=== PATIENT | female | born 1970 | race Caucasian/White ===

== ENCOUNTER 2016-07-05 12:22 | Emergency (ER) | payer OTHER ==
[~2016-07-05] VITALS: Ht 165.1 cm; Wt 105.2 kg
[~2016-07-05 12:22] MED LIST: FLEXERIL10 MG PO; NAPROSYN500 MG PO; VICODIN 5-3001 EACH PO
[2016-07-05] MEDS ORDERED: PREDNISONE50 MG PO (14:22)
[2016-07-05] MEDS ORDERED: CITALOPRAM HBR40 MG PO (14:42)
[2016-07-05 16:15] VITALS: BP 116/74
== END 2016-07-05 16:31 | disposition home or self-care (01) ==
LOC: EME 12:22
DX: T78.1XXA Other adverse food reactions, not elsewhere classified, initial encounter (principal); R21 Rash and other nonspecific skin eruption; R22.0 Localized swelling, mass and lump, head; L50.9 Urticaria, unspecified; Z88.1 Allergy status to other antibiotic agents
CPT/HCPCS: 99281; 99285; J1200; J2930; S0028

== ENCOUNTER 2016-12-11 13:24 | Inpatient (IN) | payer OTHER ==
[~2016-12-11] VITALS: Ht 165.1 cm; Wt 109.7 kg
[~2016-12-11 13:24] MED LIST changes: +CITALOPRAM HBR40 MG PO; +PREDNISONE50 MG PO
[2016-12-11 13:44] LABS: EOSINOPHIL (%) 1.1 % (0-5); EOSINOPHIL COUNT 0.1 K/uL (0-0.3); HEMATOCRIT 43.3 % (36.0-46.0); IMMATURE GRANULOCYTE (%) 0.7 % (0.0-0.7); IMMATURE GRANULOCYTE COUNT 0.1 K/uL; INSTRUMENT ABS NEUTROPHIL CT 4.3 K/uL; LYMPHOCYTE COUNT 2.2 K/uL (1.0-2.8); MCH 31.6 PG (29.0-34.0); MCHC 34.9 G/DL (30.0-36.0); MCV 90.6 FL (83-99); MONOCYTE (%) 4.3 % (3-12); MONOCYTE COUNT 0.3 K/uL (0-0.8); NEUTROPHIL (%) 61.7 % (45-76); NEUTROPHIL COUNT 4.3 K/uL (1.8-6.4); RBC DIS.WIDTH-CV 12.3 % (11.8-14.6); RBC DIS.WIDTH-SD 40.8 % (39-53); RED BLOOD COUNT 4.78 M/uL (3.80-5.20)
[2016-12-11 13:54] LABS: AMYLASE 45 IU/L (1-118); CHLORIDE 106 mEq/L (99-109); POTASSIUM 4.1 mEq/L (3.7-5.4); SODIUM 139 mEq/L (136-147)
[2016-12-11 13:55] LABS: GLUCOSE 104 mg/dL (70-99)
[2016-12-11 13:57] LABS: ANION GAP 14 MEQ/L (2-14)
[2016-12-11 13:59] LABS: GFR ESTIMATE (CALCULATED) 51 mL/min/; SERUM ETHYL ALCOHOL < 10 mg/dL
[2016-12-11 14:00] LABS: UREA NITROGEN (BUN) 16 mg/dL (9-23)
[2016-12-11 14:02] LABS: LIPASE 38 U/L (1.0-51.0)
[2016-12-11 14:09] LABS: QUANTITATIVE HCG < 4.0 MIU/ML
[2016-12-11 14:24] LABS: MEAN PLAT.VOLUME 10.9 uM^3 (9.5-12.4); PLAT.SUFFICIENCY DECREASED; PLATELET COUNT 77 K/uL (156-360)
[2016-12-11] MEDS ORDERED: FLEXERIL5 MG PO (17:43)
[2016-12-11] MEDS ORDERED: ADVIL200 MG PO (17:43)
[2016-12-11 17:45] LABS: ADD MIUA? YES; BILIRUBIN NEGATIVE; BLOOD MODERATE; COLOR YELLOW ((YELLOW)); GLUCOSE (STRIP) NEGATIVE; KETONES NEGATIVE; LEUKOCYTES NEGATIVE; NITRITE NEGATIVE; PROTEIN (STRIP) 30; SPECIFIC GRAVITY 1.045 (1.000-1.030); UROBILINOGEN 0.2 MG/DL (0.2-1.0)
[2016-12-11] MEDS ORDERED: CLARITIN,ALAVAR10 MG PO (17:52)
[2016-12-11] MEDS ORDERED: [UNRECOGNIZED DRUG - OTHER] BOTH EYES (17:52)
[2016-12-11 17:57] LABS: BACTERIA RARE /HPF; EPITHELIAL CELLS RARE /HPF; MUCUS TRACE /LPF; RED BLOOD CELLS 0-5 /HPF (0-5); UCUL ADDED? NO; WHITE BLOOD CELLS 0-5 /HPF (0-5)
[2016-12-11 18:08] LABS: AMPHETAMINE NEGATIVE (500 ng/mL); BARBITURATES NEGATIVE (200 ng/mL); BENZODIAZEPINES NEGATIVE (150 ng/mL); COCAINE NEGATIVE (150 ng/mL); INTERNAL CONTROLS VALID? YES; METHADONE NEGATIVE (200 ng/mL); METHAMPHETAMINE NEGATIVE (500 ng/mL); OPIATES (MORPHINE) PRESUMPTIVE POSITIVE (100 ng/mL); OXYCODONE NEGATIVE (100 ng/mL); PHENCYCLIDINE NEGATIVE (25 ng/mL); PROPOXYPHENE NEGATIVE (300 ng/mL); THC CANNABINOIDS PRESUMPTIVE POSITIVE (50 ng/mL); TRICYCLIC ANTIDEPRESSANTS NEGATIVE (300 ng/mL)
[2016-12-11 18:09] LABS: ADD MEDTOX COMMENT Y
[2016-12-11 18:41] VITALS: BP 137/84
[2016-12-11 19:05] VITALS: BP 133/84
[2016-12-11 19:29] VITALS: BP 133/84
[2016-12-11 23:31] VITALS: BP 119/62
[2016-12-12 03:29] VITALS: BP 125/69
[2016-12-12 06:44] LABS: HEMATOCRIT 37.7 % (36.0-46.0); MCH 31.4 PG (29.0-34.0); MCHC 34.7 G/DL (30.0-36.0); MCV 90.4 FL (83-99); MEAN PLAT.VOLUME 10.6 uM^3 (9.5-12.4); RBC DIS.WIDTH-CV 12.4 % (11.8-14.6); RBC DIS.WIDTH-SD 41.3 % (39-53); RED BLOOD COUNT 4.17 M/uL (3.80-5.20); WHITE BLOOD COUNT 11.3 K/uL (4.1-10.2)
[2016-12-12 06:45] LABS: PLATELET COUNT 166 K/uL (156-360)
[2016-12-12 06:58] LABS: ALKALINE PHOSPHATASE 75 IU/L (3-129); ANION GAP 10 MEQ/L (2-14); CHLORIDE 104 MEQ/L (99-109); GFR ESTIMATE (CALCULATED) > 59 mL/min/; GLUCOSE 124 mg/dL (70-99); POTASSIUM 4.2 MEQ/L (3.7-5.4); SAMPLE HEMOLYSIS CHECK 0; SAMPLE ICTERIC CHECK 0; SAMPLE LIPEMIA CHECK 0; SODIUM 138 MEQ/L (136-147); TOTAL BILIRUBIN 0.5 MG/DL (0.0-1.0); UREA NITROGEN (BUN) 15 mg/dL (9-23)
[2016-12-12 08:07] VITALS: BP 125/64
[2016-12-12 11:26] VITALS: BP 118/70
[2016-12-12 16:00] VITALS: BP 124/69
[2016-12-12 19:48] VITALS: BP 119/65
[2016-12-12 22:48] VITALS: BP 133/71
[2016-12-13 03:55] VITALS: BP 116/66
[2016-12-13 07:10] LABS: HEMATOCRIT 35.2 % (36.0-46.0); MCH 32.2 PG (29.0-34.0); MCHC 34.4 G/DL (30.0-36.0); MCV 93.6 FL (83-99); MEAN PLAT.VOLUME 10.8 uM^3 (9.5-12.4); PLATELET COUNT 147 K/uL (156-360); RBC DIS.WIDTH-CV 12.8 % (11.8-14.6); RBC DIS.WIDTH-SD 44.2 % (39-53); RED BLOOD COUNT 3.76 M/uL (3.80-5.20); WHITE BLOOD COUNT 8.7 K/uL (4.1-10.2)
[2016-12-13 08:06] LABS: ANION GAP 6 MEQ/L (2-14); CHLORIDE 104 MEQ/L (99-109); GFR ESTIMATE (CALCULATED) 56 mL/min/; SAMPLE HEMOLYSIS CHECK 0; SAMPLE ICTERIC CHECK 0; SAMPLE LIPEMIA CHECK 0; SODIUM 140 MEQ/L (136-147); UREA NITROGEN (BUN) 15 mg/dL (9-23)
[2016-12-13 08:07] LABS: GLUCOSE 88 mg/dL (70-99)
[2016-12-13 11:50] VITALS: BP 124/62
[2016-12-13 19:44] VITALS: BP 134/65
[2016-12-13 23:49] VITALS: BP 138/68
[2016-12-14 03:32] VITALS: BP 142/74
[2016-12-14 08:39] VITALS: BP 160/92
[2016-12-14 16:31] VITALS: BP 132/68
[2016-12-14 19:31] VITALS: BP 146/77
[2016-12-14 23:47] VITALS: BP 134/73
[2016-12-15 03:55] VITALS: BP 137/78
[2016-12-15 08:01] VITALS: BP 138/79
[2016-12-15 11:43] VITALS: BP 137/80
[2016-12-15 20:55] VITALS: BP 140/79
[2016-12-16 00:56] VITALS: BP 138/94
[2016-12-16 04:49] VITALS: BP 137/79
[2016-12-16 08:21] VITALS: BP 129/78
[2016-12-16] MEDS ORDERED: PERCOCET 5/31 TABLET PO (10:28)
[2016-12-16 11:29] VITALS: BP 149/72
== END 2016-12-16 12:55 | disposition home or self-care (01) | DRG 511 ==
LOC: TRA 13:24 → EDOF 16:23 → 3EAST 16:23 → ENRESERV 16:27 → EDOF 18:17 → 3EAST 18:18
PROVIDERS: Emergency Medicine; Thoracic Surgery (Cardiothoracic Vascular Surgery)
PROC: 0RSWXZZ Reposition Right Finger Phalangeal Joint, External Approach (ICD-10-PCS; 2016-12-11)
PROC: 0PSHXZZ Reposition Right Radius, External Approach (ICD-10-PCS; 2016-12-11)
PROC: 0PSH04Z Reposition Right Radius with Internal Fixation Device, Open Approach (ICD-10-PCS; principal; 2016-12-15)
PROC: 0PSQ04Z Reposition Left Metacarpal with Internal Fixation Device, Open Approach (ICD-10-PCS; principal; 2016-12-15)
DX: S52.501A Unspecified fracture of the lower end of right radius, initial encounter for closed fracture (principal); S62.331A Displaced fracture of neck of second metacarpal bone, left hand, initial encounter for closed fracture; S52.601A Unspecified fracture of lower end of right ulna, initial encounter for closed fracture; S22.41XA Multiple fractures of ribs, right side, initial encounter for closed fracture; S27.321A Contusion of lung, unilateral, initial encounter; S27.0XXA Traumatic pneumothorax, initial encounter; S63.284A Dislocation of proximal interphalangeal joint of right ring finger, initial encounter; W11.XXXA Fall on and from ladder, initial encounter; Y93.E9 Activity, other interior property and clothing maintenance; Y92.008 Other place in unspecified non-institutional (private) residence as the place of occurrence of the external cause; R40.2412 Glasgow coma scale score 13-15, at arrival to emergency department; E66.9 Obesity, unspecified; F32.9 Major depressive disorder, single episode, unspecified; D69.6 Thrombocytopenia, unspecified; Z68.41 Body mass index [BMI] 40.0-44.9, adult; Z88.1 Allergy status to other antibiotic agents
CPT/HCPCS: 70450; 71010; 71020; 71260; 72125; 72129; 72132; 73110; 73130; 73140; 73610; 74177; 76000; 80048; 80053; 81003; 82150; 83690; 84702; 84999; 85025; 85027; 86900; 86901; 94010; 94640; 94640 76; 94799; 97530 GO; 99202; 99281; 99285; C1713; G0480; J0690; J1100; J1170; J1644; J1885; J2250; J2405; J3010; J7120; Q0169; S0020